=== PATIENT | female | born 1955 | race Caucasian/White ===

== ENCOUNTER 2019-04-25 06:34 | Inpatient (IN) ==
--- NOTE | 2019-03-30 13:35 | ANES ---
Anesthesia Pre Procedure Eval HOME MEDICATIONS amlodipine 2.5 mg tablet 2.5 mg PO DAILY 02/22/19 [Last Taken Unknown] aspirin 81 mg tablet,delayed release 81 mg PO DAILY 02/22/19 [Last Taken Unknown] cranberry zxzr-N-jtzskgim coag 450 mg-30 mg-50 million cell tablet 1 tab PO DAILY tab 02/22/19 [Last Taken Unknown] hydrochlorothiazide 12.5 mg capsule 12.5 mg PO DAILY 02/22/19 [Last Taken Unknown] levothyroxine 100 mcg capsule 100 mcg PO DAILY 02/22/19 [Last Taken Unknown] metoprolol succinate 50 mg tablet,extended release 24 hr 50 mg PO DAILY 02/22/19 [Last Taken Unknown] naproxen sodium 220 mg tablet 440 mg PO QAM PRN tab 02/22/19 [Last Taken Unknown] pravastatin 20 mg tablet 20 mg PO DAILY 02/22/19 [Last Taken Unknown] turmeric root extract 1,053 mg tablet 1,053 mg PO DAILY tab 02/22/19 [Last Taken Unknown] Allergies/Adverse Reactions: Allergies Allergy/AdvReac Type Severity Reaction Status Date / Time No Known Allergies Allergy Verified 03/30/19 08:58 - Planned Procedure Planned Procedure: Arthroplasty Left Total Knee 04/24, RTK on 04/26 Medication List Reviewed:: Yes Allergies Verified: Yes Medical History (Last Reviewed 03/30/19 @ 13:34 by Frankie Villalobos CRNA) Osteoarthritis of knee (Chronic) Arthritis Onset Date: Unknown CHD (congenital heart disease) Onset Date: Unknown ventricular septal defect Degenerative joint disease of knee Onset Date: Unknown bilateral Hypertension Onset Date: Unknown Pulmonary sarcoidosis Onset Date: Unknown Ventricular septal defect Onset Date: Unknown Surgical History (Last Reviewed 03/30/19 @ 13:34 by Frankie Villalobos CRNA) History of section Onset Date: 1988 History of hysterectomy Onset Date: 2004 Family History (Last Reviewed 03/30/19 @ 13:34 by Frankie Villalobos CRNA) Father , fall before he CHF (congestive heart failure) Hypertension Arthritis Mother Arthritis Hypertension Brain tumor - Family Anesthesia History Family History:: no untoward family reactions to anesthesia, no familial bleeding tendencies, no family history of clotting disorders, no family history of premature - Airway/Neck/Teeth Within Normal Limits:: Yes Teeth Condition: missing Mallampatti Score: 2 Thyromental (T-M) distance: > 6 cm Mandibulo Hyoid distance: > 3 cm - Respiratory Smoking Status: Never smoker Discussed smoking cessation including day of surgery: No Sleep Apnea currently treated: No Sleep Apnea by current assessment: No Discussed Risks/Treatment of TAMMY: No - Cardiovascular Tolerate Activity: Fair Heart Sounds: S1 & S2, Regular - Anesthesia Assessment and Plan ASA Class: PS, III Anesthesia Type Plan: Block - Ultrasound guided adductor canal nerve block for postop analgesia, Spinal
[~2019-04-25 06:34] MED LIST: ISOPROPYL ALCOHOL 480 APPL BTL MC ONE; MORPHINE SULFATE 15 MG TABLET.SA PO PRN; ROPIVACAINE HCL/PF 100 MG, EPINEPHrine 0.2 MG, KETOROLAC TROMETHAMINE 30 MG in NORMAL S... IJ PRN; TRANEXAMIC ACID 1,000 MG in NORMAL SALINE 100 ML IV PRN; ceFAZolin SODIUM 1 GM VIAL IV PRN; ceFAZolin SODIUM 1 GM VIAL ONE
[2019-04-25] MEDS ORDERED: MIDAZOLAM HCL/PF 5 MG/ML VIAL ONE (07:02)
[2019-04-25] MEDS ORDERED: PROPOFOL VIAL IV ONE (07:03)
[2019-04-25] MEDS ORDERED: LIDOCAINE HCL 20 ML VIAL ONE (07:04)
[2019-04-25] MEDS ORDERED: BUPIVACAINE HCL/EPINEPHRINE/PF 30 ML VIAL IJ ONE (07:20)
[2019-04-25] MEDS: RINGER'S SOLUTION,LACTATED 1,000 ML IV PRN ×3 (07:39→10:20)
--- NOTE | 2019-04-25 07:41 | ANES ---
Anesthesia Pre Procedure Eval Vitals/Labs: Last Vital Signs Temp 37.7 C 04/25/19 06:51 Pulse 70 04/25/19 06:51 Resp 18 04/25/19 06:51 BP 121/83 04/25/19 06:51 Pulse Ox 95 04/25/19 06:51 HOME MEDICATIONS amlodipine 2.5 mg tablet 2.5 mg PO DAILY 02/22/19 [Last Taken 04/25/19] aspirin 81 mg tablet,delayed release 81 mg PO DAILY 02/22/19 [Last Taken 04/15/19] cranberry mmdl-H-fwvcianu coag 450 mg-30 mg-50 million cell tablet 1 tab PO DAILY tab 02/22/19 [Last Taken 04/24/19] hydrochlorothiazide 12.5 mg capsule 12.5 mg PO DAILY 02/22/19 [Last Taken 04/25/19] levothyroxine 100 mcg capsule 100 mcg PO DAILY 02/22/19 [Last Taken 04/24/19] metoprolol succinate 50 mg tablet,extended release 24 hr 50 mg PO DAILY 02/22/19 [Last Taken 04/25/19] naproxen sodium 220 mg tablet 440 mg PO QAM PRN tab 02/22/19 [Last Taken 04/15/19] pravastatin 20 mg tablet 20 mg PO DAILY 02/22/19 [Last Taken 04/24/19] turmeric root extract 1,053 mg tablet 1,053 mg PO DAILY tab 02/22/19 [Last Taken 04/15/19] Allergies/Adverse Reactions: Allergies Allergy/AdvReac Type Severity Reaction Status Date / Time No Known Allergies Allergy Verified 03/30/19 08:58 - Planned Procedure Planned Procedure: Left Total Knee on 04/24, Right Total Knee on 04/26 Medication List Reviewed:: Yes Allergies Verified: Yes Medical History (Last Reviewed 04/25/19 @ 07:39 by Kalia Johnson CRNA) Osteoarthritis of knee (Chronic) High cholesterol Arthritis Onset Date: Unknown CHD (congenital heart disease) Onset Date: Unknown ventricular septal defect Degenerative joint disease of knee Onset Date: Unknown bilateral Hypertension Onset Date: Unknown Pulmonary sarcoidosis Onset Date: Unknown p/t reports seeing pulmonary doctor in 03/2019 and doctor stated both lungs showing stability at this time Ventricular septal defect Onset Date: Unknown Surgical History (Last Reviewed 04/25/19 @ 07:39 by Kalia Johnson CRNA) History of lung biopsy benign per p/t report History of section Onset Date: 1988 History of hysterectomy Onset Date: 2004 Family History (Last Reviewed 04/25/19 @ 07:39 by Kalia Johnson CRNA) Father , fall before he CHF (congestive heart failure) Arthritis Hypertension Mother Brain tumor Arthritis Hypertension Daughter Alive and well Daughter Alive and well - Family Anesthesia History Family History:: no untoward family reactions to anesthesia - Airway/Neck/Teeth Within Normal Limits:: Yes Teeth Condition: intact Denture Type: None Neck Exam: full range of motion Mallampatti Score: 2 Thyromental (T-M) distance: > 6 cm - Respiratory Respiratory History: asthma Respiratory Physical: lungs clear Discussed smoking cessation including day of surgery: No Sleep Apnea currently treated: No Sleep Apnea by current assessment: No Discussed Risks/Treatment of TAMMY: No - Cardiovascular Tolerate Activity: Fair Heart Sounds: S1 & S2, Regular - Anesthesia Assessment and Plan ASA Class: III Anesthesia Type Plan: MAC, Spinal Planned difficult intubation/equipment available: No
--- NOTE | 2019-04-25 10:06 | OR ---
Operative Report - Dictated Report Narrative: Date: 04/25/2019 Preoperative diagnosis: Left knee degenerative joint disease. Postoperative diagnosis: Left knee degenerative joint disease. Procedure: Left total knee arthroplasty. Surgeon: Alen England M.D. Nurse Orthopaedic: Shahram Lim PA-C (provided and essential set of skilled, educated hands that assisted with transfer, positioning, prepping, draping, manipulation, retraction, placement of jigs, injection, insertion of implants, irrigation, closure wounds, and dressings all of which could not be performed by the available surgical crew) Anesthesia: Spinal with regional block and local periarticular joint injection. Complications: None Specimens: Bone. Estimated blood loss: Minimal. Tourniquet time: 100 Minutes at 350 millimeters of mercury. Retained implants: Depuy Attune size 5 left lugged cemented posterior stabilized femoral component. Size 5 fixed-bearing cemented tibial platform. 5 by 8 millimeter posterior stabilized cross-linked tibial insert. 38 millimeter medialized patella button. Indications: Mrs. Lane is a 64-year-old female who has had longstanding bilateral knee pain and arthrosis. She is here today for her left knee. This patient was followed in my clinic for period of time with significant complaints of left knee pain consistent with arthritic changes. She had failed conservative measures including, but not limited to, activity modification, passage of time, medications, and other conservative measures. Patient wished to proceed with surgical treatment. The risks, benefits, and alternatives were discussed in clinic. The risks of , blood clots, bleeding, infection, nerve/tendon blood vessel/ injury, malposition of components, intraoperative fracture, postoperative limited range of motion, persistent pain, failure of components, and need for additional procedures. Patient wished to proceed consent was obtained after answering all questions. Procedure: After marking the correct extremity on the floor, the patient was taken to the operating room. A timeout was performed. IV antibiotics consis ting of Ancef were administered prior to the procedure. A regional followed by spinal anesthetic was induced by anesthesia, per my request, on the operative table with all bony prominences well-padded. Wood catheter was placed, and a bump was placed under the operative side buttock. SCDs and GERARD hose were utilized on the nonoperative leg. A well-padded tourniquet was applied to the operative thigh. The operative leg was then pre-scrubbed with alcohol, prepped, and draped in a standard sterile fashion. After exsanguinating the extremity with an Esmarch bandage, the tourniquet was inflated. After marking out the anterior knee for standard incision centered over the patella, the skin was incised and dissected down to the joint retinaculum. The joint retinaculum was marked out as well as the horizontal axis of the patella, and a standard medial parapatellar arthrotomy was then made. The most proximal aspect of the quadriceps tendon and the patella tendon insertion were protected from release. A partial synovectomy was performed as well as a resection of the infrapatellar fat pad. The distal femoral fat pad proximal to the trochlea was also resected using cautery. The soft tissues were elevated off the medial aspect of the proximal tibia using a Etienne elevator ensuring that we did not transect the medial collateral ligament. Upon initial evaluation range of motion was approximately 5 degrees recurvatum to 120 degrees of flexion. There were signs of advanced arthrosis in the medial, lateral, and patellofemoral joint spaces. There were large marginal osteophytes which were removed with a rongeur. The knee was hyperflexed and the patella was tucked laterally. Protecting the surrounding soft tissues with Homans, an entry drill was placed down the femoral canal using Whitesides line for guidance into the entry point. The intramedullary femoral alignment ojlanta was utilized in order to cut the distal femur in 5 degrees of valgus resecting 10 millimeters of bone. Next the distal femur was sized to a size 5. A posterior referencing guide was utilized to place the distal femoral cutting block in 3 degrees of external rotation. This was pinned into place. The rotation was confirmed both visually and based on anatomic landmarks. The 4 in 1 cutting jig of the appropriate size was utilized in order to make all bony cuts. The deon wing was used to ensure no notching. Retractors were utilized in order to protect surrounding soft tissues. This cut did not result in any excessive notching. We then cut the box centered over the distal femur. This allowed for resection of the anterior and posterior cruciate ligaments. I then turned my attention to the preparation of the tibia. Using an extra medullary tibial alignment jolanta, 2 millimeters of bone was resected off the medial articular surface. This was made perpendicular to the mechanical axis of the joint with the alignment jolanta centered over the ankle mortise. The alignment jolanta was checked and was noted to be parallel to the mechanical axis, centered over the medial one third of the tibial tubercle, paralleling the anterior surface of the tibia. We then turned our attention to the remaining meniscus and soft tissues. These were removed while protecting the surrounding ligaments and soft tissues. The marginal osteophytes off the anterior, posterior, medial, lateral aspects of the femur and tibia were removed. The tibia was sized out to a size 5. Next the tibia was drilled and punched in an externally rotated position. Next the trial femur and a series of tibial inserts were utilized in order to allow for full extension and maximal flexion. It was found that a 8 millimeter insert gave the best range of motion and stability at multiple flexion points as well as at full extension there was less than 2 mm of gapping both medially and laterally. There is minimal anterior translation with the knee at 90 degrees of flexion and no signs of being able to dislocate the knee. The patella was then prepared. The initial thickness was 23 millimeters. This was reamed down to 13 millimeters parallel to the anterior surface of the patella. It was sized out to a size 38 medialized patella button. This was then drilled and trialed. Without any medial restraint the patella tracked appropriately and did not sublux or dislocate. At this point, it was felt these were the appropriate sized implants, and all trials were removed. The standard periarticular joint injection consisting of ropivacaine, Toradol, and epinephrine were injected into the periarticular joint tissues. The bony surfaces were thoroughly irrigated with a pulsatile-suction saline irrigation device. A bone plug from the prior resected anterior chamfer cut was placed into the drill hole at the distal femur. The bony surfaces were then dried in preparation for placement of the implants. The cement was vacuum mixed per the federal aid coordinator's instructions. The cement was placed on the dry bony surfaces and posterior aspect of the implants. The implants were impacted into place, removing all extruded cement. At this point anesthesia administered tranexamic acid per protocol intravenously. The knee was placed in extension with axial loading with the trial insert while the cement cured. Once the cement cured, all remaining extruded cement was removed. The knee was placed through a range of motion with the trial insert to ensure appropriate range of motion and stability. Final range of motion was approximately 0 to 120 degrees. The knee was again thoroughly irrigated with pulsatile saline lavage. The final polyethylene insert was then impacted into place ensuring no retained soft tissues. The remaining periarticular joint injection was injected. A medium Hemovac drain was placed exiting superior laterally. The knee was then placed over a triangle and the arthrotomy was closed with interrupted #1 Vicryl after thoroughly irrigating the joint. The deep and subcutaneous tissues were closed with interrupted 0 and 3-0 Vicryl respectively. Skin was closed with a running subcutaneous 3-0 Monocryl and Prineo Dermabond dressing. 4 x 4's, Sof-Rol, and a full leg Juan R wrap were applied. All sponge, needle, blade, and instrument counts were correct prior to closing the wounds. Postoperative condition: The patient was awoken and transferred to the postanesthesia care unit in stable condition. Plan is to be admitted to the inpatient medical/surgical floor postoperatively for 24 hours of IV antibiotics, physical therapy, occupational therapy, and medical comanagement. Patient will be weightbearing as tolerated with range of motion as tolerated. DVT prophylaxis will be with SCDs, GERARD hose, and pharmacological anticoagulation. Anticipated hospital stay is approximately 1-3 days.
[2019-04-25] MEDS ORDERED: ACETAMINOPHEN 500 MG TABLET PO PRN (10:09)
[2019-04-25] MEDS ORDERED: MAGNESIUM HYDROXIDE 30 ML UDC PO PRN (10:09)
[2019-04-25] MEDS ORDERED: MORPHINE SULFATE 2 MG/ML DISP.SYRIN IV PRN (10:09)
[2019-04-25] MEDS ORDERED: MAG HYDROX/ALUMINUM HYD/SIMETH 30 ML UDC PO PRN (10:09)
[2019-04-25] MEDS ORDERED: diphenhydrAMINE HCL 50 MG/ML VIAL IV PRN (10:09)
[2019-04-25] MEDS ORDERED: ZOLPIDEM TARTRATE 5 MG TABLET PO PRN (10:09)
--- NOTE | 2019-04-25 10:11 | ANES ---
Anesthesia Procedure Note Procedure Note: ANESTHESIA PROCEDURE NOTE Date of Procedure: [04/25/2019 Time of procedure: 8 AM. Performed by: DARLIN Deng CRNA, MSN Gis Technician: Makeda Finch RN. Preprocedure diagnosis: Left total knee arthroplasty pain. Post procedure diagnosis: Same. Procedure: Left adductor Canal Block. Indications: Post left total knee arthroplasty pain relief. Findings: See below. Details of the procedure: The patient was brought to OR #4 and placed in supine position. The patient's left femoral area to the knee was prepped with chlorhexidine and using ultrasound guidance the left femoral artery and nerve was identified and then followed to the level of the adductor canal. Lidocaine 1% was infiltrated to the skin of the intended injection site. Under ultrasound guidance the saphenous nerve was approached with visualization of a 4 inch shielded block needle. Once saphenous nerve was identified with proximity to the needle tip, the saphenous nerve was surrounded with 20 mL bupivacaine 0.5% with 1-200,000 epinephrine. Please see radiology/ultrasound report for details and retained images of the procedure. EBL: 0 Fluids: N/A. Specimen: N/A. Post procedure condition: The patient tolerated the procedure well. No complications were noted. Thank you for this consultation. Porter Nam CRNA, ARNP, MSN
--- NOTE | 2019-04-25 10:32 | ANES ---
Post Anesthesia Assessment - Vital Signs Vitals: Last Vital Signs Temp 36.8 C 04/25/19 10:20 Pulse 65 04/25/19 10:25 Resp 13 04/25/19 10:25 BP 119/51 04/25/19 10:25 Pulse Ox 99 04/25/19 10:25 Airway Patency: Normal - Mental Status Level Of Consciousness: Awake, Alert - Pain Level Pain Score: 0 - N/V Assessment Nausea/Vomiting Presence: None Dehydration:: No
--- NOTE | 2019-04-25 10:53 | ANES ---
Post Anesthesia Discharge - Transfer of Care Transfer of Care handoff given to nurse: Yes - Discharge from PACU Discharge from PACU when meets criteria: Yes - Discharge to ASU Discharge to ASU-no complications/pt stable: Yes - Anesthesia Post Op Note Anesthesia Post Op Note: SAB beginning to resolve. Appears to be doing well.
[2019-04-25] MEDS: DEXTROSE 5%-LACTATED RINGERS 1,000 ML IV PRN ×2 (11:00→19:36)
[2019-04-25] MEDS: KETOROLAC TROMETHAMINE 15 MG/ML VIAL IV SCH ×3 (11:14→22:17)
[2019-04-25] MEDS: ceFAZolin SODIUM 1 GM in DEXTROSE 5 % IN WATER 50 ML IV SCH ×4 (11:15→17:28)
[2019-04-25] MEDS: oxyCODONE HCL/ACETAMINOPHEN 1 TAB TABLET PO PRN ×2 (12:42→17:26)
[2019-04-25] MEDS: SIMVASTATIN 10 MG TABLET PO SCH (20:48)
[2019-04-25] MEDS: SENNOSIDES/DOCUSATE SODIUM 1 TAB TABLET PO SCH (20:48)
[2019-04-25] MEDS: MORPHINE SULFATE 15 MG TABLET.SA PO SCH (20:51)
[2019-04-26] MEDS: ceFAZolin SODIUM 1 GM in DEXTROSE 5 % IN WATER 50 ML IV SCH ×2 (00:09)
[2019-04-26] MEDS: oxyCODONE HCL/ACETAMINOPHEN 1 TAB TABLET PO PRN ×4 (01:21→18:18)
[2019-04-26] MEDS: KETOROLAC TROMETHAMINE 15 MG/ML VIAL IV SCH ×4 (03:58→22:37)
[2019-04-26 06:29] LABS: Hematocrit 28.6 % (37.0-47.0); Hemoglobin 9.3 gm/dL (12.5-16.0); Mean Corpuscular Hemoglobin 28.6 pg (27-31); Mean Corpuscular Hgb Conc 32.5 g/dl (32-36); Mean Platelet Volume 9.7 fl (8-12.5); Platelet Count 138 K/mm3 (150-450); Red Blood Count 3.25 M/mm3 (4.2-5.4); Red Cell Distribution Width 14.3 % (11.5-14.0); White Blood Count 2.2 K/mm3 (4.0-10.5)
[2019-04-26 06:39] LABS: Anion Gap 9.8 mmol/L (6.8-13.8); BUN/Creatinine Ratio 10.5 (9.0-21.6); Calcium * 7.6 mg/dL (7.9-10.9); Carbon Dioxide 28.5 mmol/L (24-32.6); Potassium 3.3 mmol/L (3.4-4.6)
[2019-04-26] MEDS: LEVOTHYROXINE SODIUM 100 MCG TABLET PO SCH (06:44)
--- NOTE | 2019-04-26 07:56 | PN ---
Subjective - Date and Time Seen Date: 04/26/19 Time: 07:51 Subjective Narrative: Subjective: Reports minimal pain. Was able to walk in the room with therapy. Pain is well-controlled. Voiding without any complications. Tolerating by mouth intake. Denies any nausea or vomiting. Denies calf pain. Slept well. Physical exam: Alert and oriented to person, place and time Left lower extremity: Palpable dorsalis pedis pulse. Sensation grossly intact to light touch. Dressings clean and dry. Able to flex and extend ankle and toes. No excessive drainage. Calf and thigh are soft and nontender. Assessment: Postop day 1 status post left total knee arthroplasty. Plan: Due to the need for pain control, post-operative limited mobility, protection of the surgical site and joint, monitoring of the wound, and the management of chronic medical conditions, she requires continued inpatient care. Plan is to proceed with her right total knee arthroplasty tomorrow. Continue with physical and occupational therapy weightbearing as tolerated. Continue with anticoag ulation. 24 hours postoperative prophylactic antibiotics. Pain control with goal to rely on oral medications. Continue bowel regimen. Will need 6 weeks with walker or assitive device to protect joint while ambulating during the recovery process. Discharge planning. Discontinue drain and continue Wood catheter due to planned surgical procedure tomorrow. Objective - Vitals Vitals: Last Vital Signs Temp 37.0 C 04/26/19 06:30 Pulse 64 04/26/19 06:30 Resp 18 04/26/19 06:30 BP 142/70 04/26/19 06:30 Pulse Ox 99 04/26/19 06:30 - Abnormal Lab Findings Abnormal Lab Findings: Abnormal Lab Results 04/26/19 04/26/19 Range/Units 06:23 06:23 WBC 2.2 L (4.0-10.5) K/mm3 RBC 3.25 L (4.2-5.4) M/mm3 Hgb 9.3 L (12.5-16.0) gm/dL Hct 28.6 L (37.0-47.0) % RDW 14.3 H (11.5-14.0) % Plt Count 138 L (150-450) K/mm3 Potassium 3.3 L (3.4-4.6) mmol/L Calcium 7.6 L (7.9-10.9) mg/dL Cauti Physician Documentation - Urinary Catheter Management Urethral (Wood) Urethral Indwelling: Yes Reason for Continuing Indwelling Catheter: Surgical Procedure Date of Insertion: 04/25/19 Time of Insertion: 08:10 Assessment/Plan - Problems/Diagnosis (1) Status post total left knee replacement Problem: Acute (2) HTN (hypertension) Problem: Chronic (3) Hyperlipemia Problem: Chronic (4) Asthma Problem: Chronic (5) Ventricular septal defect (VSD), membranous Problem: Chronic (6) Mitral regurgitation Problem: Chronic (7) Pulmonary sarcoidosis Problem: Chronic (8) Tricuspid regurgitation Problem: Chronic (9) Granulomatous disease Problem: Chronic (10) Acute blood loss anemia Problem: Acute
[2019-04-26] MEDS: [UNRECOGNIZED DRUG - MIXTURE] PO SCH (08:43)
[2019-04-26] MEDS: TURMERIC ROOT EXTRACT 1053 MG PO SCH (08:43)
[2019-04-26] MEDS: amLODIPine BESYLATE 5 MG TABLET PO SCH (08:44)
[2019-04-26] MEDS: ENOXAPARIN SODIUM 40 MG/0.4 ML SYRG SC SCH (08:44)
[2019-04-26] MEDS: METOPROLOL SUCCINATE 50 MG TABLET.SA PO SCH (08:44)
[2019-04-26] MEDS: HYDROCHLOROTHIAZIDE 12.5 MG CAPSULE PO SCH (08:44)
[2019-04-26] MEDS: MORPHINE SULFATE 15 MG TABLET.SA PO SCH ×2 (08:44→20:45)
[2019-04-26] MEDS: ONDANSETRON HCL/PF 2 MG/ML VIAL IV PRN ×2 (10:33→18:20)
[2019-04-26] MEDS: SENNOSIDES/DOCUSATE SODIUM 1 TAB TABLET PO SCH (20:45)
[2019-04-26] MEDS: SIMVASTATIN 10 MG TABLET PO SCH (20:46)
[2019-04-27] MEDS: KETOROLAC TROMETHAMINE 15 MG/ML VIAL IV SCH ×4 (03:34→23:50)
[2019-04-27] MEDS: oxyCODONE HCL/ACETAMINOPHEN 1 TAB TABLET PO PRN ×3 (03:35→17:47)
[2019-04-27] MEDS: ONDANSETRON HCL/PF 2 MG/ML VIAL IV PRN ×3 (03:37→17:47)
[2019-04-27] MEDS ORDERED: TRANEXAMIC ACID 1,000 MG in NORMAL SALINE 100 ML IV PRN (06:00)
[2019-04-27] MEDS ORDERED: ROPIVACAINE HCL/PF 100 MG, EPINEPHrine 0.2 MG, KETOROLAC TROMETHAMINE 30 MG in NORMAL S... IJ PRN (06:00)
[2019-04-27] MEDS ORDERED: ceFAZolin SODIUM 1 GM VIAL IV PRN (06:00)
[2019-04-27] MEDS ORDERED: BUPIVACAINE HCL/EPINEPHRINE/PF 30 ML VIAL IJ ONE (06:34)
[2019-04-27] MEDS ORDERED: PROPOFOL VIAL IV ONE (06:34)
[2019-04-27] MEDS ORDERED: MIDAZOLAM HCL/PF 1 MG/ML VIAL ONE (06:34)
[2019-04-27] MEDS ORDERED: ISOPROPYL ALCOHOL 480 APPL BTL MC ONE (07:08)
[2019-04-27] MEDS ORDERED: ceFAZolin SODIUM 1 GM VIAL ONE (07:08)
[2019-04-27] MEDS: RINGER'S SOLUTION,LACTATED 1,000 ML IV ONE ×2 (07:20→09:40)
[2019-04-27] MEDS: METOPROLOL SUCCINATE 50 MG TABLET.SA PO SCH ×2 (07:28→09:41)
[2019-04-27] MEDS: MORPHINE SULFATE 15 MG TABLET.SA PO SCH ×3 (07:29→20:29)
[2019-04-27] MEDS: amLODIPine BESYLATE 5 MG TABLET PO SCH (09:40)
[2019-04-27] MEDS: LEVOTHYROXINE SODIUM 100 MCG TABLET PO SCH (09:40)
[2019-04-27] MEDS: [UNRECOGNIZED DRUG - MIXTURE] PO SCH (09:40)
[2019-04-27] MEDS: HYDROCHLOROTHIAZIDE 12.5 MG CAPSULE PO SCH (09:40)
[2019-04-27] MEDS: TURMERIC ROOT EXTRACT 1053 MG PO SCH (09:41)
[2019-04-27] MEDS: ENOXAPARIN SODIUM 40 MG/0.4 ML SYRG SC SCH (09:42)
[2019-04-27] MEDS ORDERED: DEXTROSE 5%-LACTATED RINGERS 1,000 ML IV PRN (10:15)
--- NOTE | 2019-04-27 10:20 | OR ---
Operative Report - Dictated Report Narrative: Date: 04/27/2019 Preoperative diagnosis: Right knee degenerative joint disease. Postoperative diagnosis: Right knee degenerative joint disease. Procedure: Right total knee arthroplasty. Surgeon: Alen England M.D. Preschool Associate Teacher: Austin Tang PA-C (provided and essential set of skilled, educated hands that assisted with transfer, positioning, prepping, draping, manipulation, retraction, placement of jigs, injection, insertion of implants, irrigation, closure wounds, and dressings all of which could not be performed by the available surgical crew) Anesthesia: Spinal with regional block and local periarticular joint injection. Complications: None Specimens: Bone. Estimated blood loss: Minimal. Tourniquet time: 120 Minutes at 350 millimeters of mercury. Retained implants: Depuy Attune size 5 right lugged cemented posterior stabilized femoral component. Size 5 revision fixed-bearing cemented tibial platform. 5 by 6 millimeter posterior stabilized cross-linked tibial insert. 38 millimeter medialized patella button. Indications: Mrs. Lane is a 64-year-old female who is here today for her second of 2 staged total knee arthroplasties. Today is her right. This patient was followed in my clinic for period of time with significant complaints of rig ht knee pain consistent with arthritic changes. She had failed conservative measures including, but not limited to, activity modification, passage of time, medications, and other conservative measures. Patient wished to proceed with surgical treatment. The risks, benefits, and alternatives were discussed in clinic. The risks of , blood clots, bleeding, infection, nerve/tendon blood vessel/ injury, malposition of components, intraoperative fracture, postoperative limited range of motion, persistent pain, failure of components, and need for additional procedures. Patient wished to proceed consent was obtained after answering all questions. Procedure: After marking the correct extremity on the floor, the patient was taken to the operating room. A timeout was performed. IV antibiotics consisting of Ancef were administered prior to the procedure. A regional followed by spinal anesthetic was induced by anesthesia, per my request, on the operative table with all bony prominences well-padded. Wood catheter was already in place, and a bump was placed under the operative side buttock. SCDs and GERARD hose were utilized on the nonoperative leg. A well-padded tourniquet was applied to the operative thigh. The operative leg was then pre-scrubbed with alcohol, prepped, and draped in a standard sterile fashion. After exsanguinating the extremity with an Esmarch bandage, the tourniquet was inflated. After marking out the anterior knee for standard incision centered over the patella, the skin was incised and dissected down to the joint retinaculum. The joint retinaculum was marked out as well as the horizontal axis of the patella, and a standard medial parapatellar arthrotomy was then made. The most proximal aspect of the quadriceps tendon and the patella tendon insertion were protected from release. A partial synovectomy was performed as well as a resection of the infrapatellar fat pad. The distal femoral fat pad proximal to the trochlea was also resected using cautery. The soft tissues were elevated off the medial aspect of the proximal tibia using a Etienne elevator ensuring that we did not transect the medial collateral ligament. Upon initial evaluation range of motion was approximately 0 degrees to 120 degrees of flexion. There were signs of advanced arthrosis in the medial, lateral, and patellofemoral joint spaces. There were large marginal osteophytes which were removed with a rongeur. The knee was hyperflexed and the patella was tucked laterally. Protecting the surrounding soft tissues with Homans, an entry drill was placed down the femoral canal using Whitesides line for guidance into the entry point. The intramedullary femoral alignment jolanta was utilized in order to cut the distal femur in 5 degrees of valgus resecting 10 millimeters of bone. Next the distal femur was sized to a size 5. A posterior referencing guide was utilized to place the distal femoral cutting block in 3 degrees of external rotation. This was pinned into place. The rotation was confirmed both visually and based on anatomic landmarks. The 4 in 1 cutting jig of the appropriate size was utilized in order to make all bony cuts. The deon wing was used to ensure no notching. Retractors were utilized in order to protect surrounding soft tissues. This cut did not result in any excessive notching. We then cut the box centered over the distal femur. This allowed for resection of the anterior and posterior cruciate ligaments. I then turned my attention to the preparation of the tibia. Using an extra medullary tibial alignment jolanta, 2 millimeters of bone was resected off the medial articular surface. This was made perpendicular to the mechanical axis of the joint with the alignment jolanta centered over the ankle mortise. The alignment jolanta was checked and was noted to be parallel to the mechanical axis, centered over the medial one third of the tibial tubercle, paralleling the anterior surface of the tibia. We then turned our attention to the remaining meniscus and soft tissues. These were removed while protecting the surrounding ligaments and soft tissues. The marginal osteophytes off the anterior, posterior, medial, lateral aspects of the femur and tibia were removed. The tibia was sized out to a size 5. Next the tibia was drilled and punched in an externally rotated position. Next the trial femur and a series of tibial inserts were utilized in order to allow for full extension and maximal flexion. It was found that a 6 millimeter insert gave the best range of motion and stability at multiple flexion points as well as at full extension there was less than 2 mm of gapping both medially and laterally. There is minimal anterior translation with the knee at 90 degrees of flexion and no signs of being able to dislocate the knee. The patella was then prepared. The initial thickness was 23 millimeters. This was reamed down to 13 millimeters parallel to the anterior surface of the patella. It was sized out to a size 38 medialized patella button. This was then drilled and trialed. Without any medial restraint the patella tracked appropriately and did not sublux or dislocate. At this point, it was felt these were the appropriate sized implants, and all trials were removed. The standard periarticular joint injection consisting of ropivacaine, Toradol, and epinephrine were injected into the periarticular joint tissues. The bony surfaces were thoroughly irrigated with a pulsatile-suction saline irrigation device. A bone plug from the prior resected anterior chamfer cut was placed into the drill hole at the distal femur. The bony surfaces were then dried in preparation for placement of the implants. The cement was vacuum mixed per the advanced practice professional's instructions. The cement was placed on the dry bony surfaces and posterior aspect of the implants. The implants were impacted into place, removing all extruded cement. At this point anesthesia administered tranexamic acid per protocol intravenously. The knee was placed in extension with axial loading with the trial insert while the cement cured. Once the cement cured, all remaining extruded cement was removed. The knee was placed through a range of motion with the trial insert to ensure appropriate range of motion and stability. Final range of motion was approximately 0 to 120 degrees. The knee was again thoroughly irrigated with pulsatile saline lavage. The final polyethylene insert was then impacted into place ensuring no retained soft tissues. The remaining periarticular joint injection was injected. A medium Hemovac drain was placed exiting superior laterally. The knee was then placed over a triangle and the arthrotomy was closed with interrupted #1 Vicryl after thoroughly irrigating the joint. The deep and subcutaneous tissues were closed with interrupted 0 and 3-0 Vicryl respectively. Skin was closed with a running subcutaneous 3-0 Monocryl and Prineo Dermabond dressing. 4 x 4's, Sof-Rol, and a full leg Juan R wrap were applied. All sponge, needle, blade, and instrument counts were correct prior to closing the wounds. Postoperative condition: The patient was awoken and transferred to the postanesthesia care unit in stable condition. Plan is to be admitted to the inpatient medical/surgical floor postoperatively for 24 hours of IV antibiotics, physical therapy, occupational therapy, and medical comanagement. Patient will be weightbearing as tolerated with range of motion as tolerated. DVT prophylaxis will be with SCDs, GERARD hose, and pharmacological anticoagulation. Anticipated hospital stay is approximately 1-3 days.
--- NOTE | 2019-04-27 10:38 | ANES ---
Post Anesthesia Discharge - Transfer of Care Transfer of Care handoff given to nurse: Yes - Discharge from PACU Discharge from PACU when meets criteria: Yes - Comfortable in PACU.
--- NOTE | 2019-04-27 10:40 | ANES ---
Anesthesia Procedure Note Procedure Note: ANESTHESIA PROCEDURE NOTE Date of Procedure: [04/27/2019 Time of procedure: 7:50 AM Performed by: DARLIN Deng CRNA, MSN Licensed Nursing Assistant: Batsheva Joinre RN. Preprocedure diagnosis: Post right knee arthroplasty pain. Post procedure diagnosis: Same. Procedure: Right adductor Canal Block. Indications: Post right total knee arthroplasty pain relief. Findings: See below. Details of the procedure: The patient was brought to OR #4 and placed in supine position. The patient's right femoral area to the knee was prepped with chlorhexidine and using ultrasound guidance the right femoral artery and nerve was identified and then followed to the level of the adductor canal. Lidocaine 1% was infiltrated to the skin of the intended injection site. Under ultrasound guidance the saphenous nerve was approached with visualization of a 4 inch shielded block needle. Once saphenous nerve was identified with proximity to the needle tip, the saphenous nerve was surrounded with 25 mL bupivacaine 0.5% with 1-200,000 epinephrine. Please see radiology/ultrasound report for details and retained images of the procedure. EBL: 0 Fluids: N/A. Specimen: N/A. Post procedure condition: The patient tolerated the procedure well. No complications were noted. Thank you for this consultation. Porter Nam CRNA, ARNP, MSN
[2019-04-27] MEDS ORDERED: EPINEPHrine 1 MG/ML AMPUL ONE (10:41)
--- NOTE | 2019-04-27 11:29 | ANES ---
Post Anesthesia Assessment - Vital Signs Vitals: Last Vital Signs Temp 36.6 C 04/27/19 11:09 Pulse 59 L 04/27/19 11:09 Resp 12 04/27/19 11:09 BP 154/76 H 04/27/19 11:09 Pulse Ox 94 04/27/19 11:09 Airway Patency: Normal - Mental Status Level Of Consciousness: Awake, Alert, Appropriate - Pain Level Pain Score: 0 - N/V Assessment Nausea/Vomiting Presence: None Dehydration:: No
[2019-04-27] MEDS: CEFAZOLIN SODIUM/DEXTROSE,ISO 1 GM/50 ML BAG IV SCH ×2 (12:07→20:31)
[2019-04-27] MEDS ORDERED: ceFAZolin SODIUM 1 GM in DEXTROSE 5 % IN WATER 50 ML IV SCH ×2 (12:15)
[2019-04-27] MEDS: SENNOSIDES/DOCUSATE SODIUM 1 TAB TABLET PO SCH (20:29)
[2019-04-27] MEDS: SIMVASTATIN 10 MG TABLET PO SCH (20:30)
[2019-04-28] MEDS: KETOROLAC TROMETHAMINE 15 MG/ML VIAL IV SCH ×3 (04:42→17:16)
[2019-04-28] MEDS: CEFAZOLIN SODIUM/DEXTROSE,ISO 1 GM/50 ML BAG IV SCH (04:44)
[2019-04-28] MEDS: oxyCODONE HCL/ACETAMINOPHEN 1 TAB TABLET PO PRN ×3 (04:53→18:42)
[2019-04-28 06:48] LABS: Hemoglobin 8.8 gm/dL (12.5-16.0); Mean Cell Volume 87.4 fl (78-100); Mean Corpuscular Hemoglobin 28.5 pg (27-31); Mean Corpuscular Hgb Conc 32.6 g/dl (32-36); Mean Platelet Volume 10.4 fl (8-12.5); Platelet Count 173 K/mm3 (150-450); Red Blood Count 3.09 M/mm3 (4.2-5.4); Red Cell Distribution Width 14.4 % (11.5-14.0); White Blood Count 3.6 K/mm3 (4.0-10.5)
[2019-04-28] MEDS: LEVOTHYROXINE SODIUM 100 MCG TABLET PO SCH (06:53)
[2019-04-28 06:57] LABS: Anion Gap 11.1 mmol/L (6.8-13.8); BUN/Creatinine Ratio 11.7 (9.0-21.6); Calcium * 7.4 mg/dL (7.9-10.9); Carbon Dioxide 29.1 mmol/L (24-32.6); Estimated Creat Clear 69.1; Potassium 3.2 mmol/L (3.4-4.6)
[2019-04-28] MEDS: ONDANSETRON HCL/PF 2 MG/ML VIAL IV PRN (07:40)
[2019-04-28] MEDS: MORPHINE SULFATE 15 MG TABLET.SA PO SCH ×2 (09:52→20:26)
[2019-04-28] MEDS: METOPROLOL SUCCINATE 50 MG TABLET.SA PO SCH (09:53)
[2019-04-28] MEDS: HYDROCHLOROTHIAZIDE 12.5 MG CAPSULE PO SCH (09:53)
[2019-04-28] MEDS: amLODIPine BESYLATE 5 MG TABLET PO SCH (09:56)
[2019-04-28] MEDS: ENOXAPARIN SODIUM 40 MG/0.4 ML SYRG SC SCH (09:57)
[2019-04-28] MEDS: [UNRECOGNIZED DRUG - MIXTURE] PO SCH (10:15)
[2019-04-28] MEDS: TURMERIC ROOT EXTRACT 1053 MG PO SCH (10:17)
[2019-04-28] MEDS: POTASSIUM CHLORIDE 10 MEQ TABLET.SA PO SCH (18:37)
[2019-04-28] MEDS: SENNOSIDES/DOCUSATE SODIUM 1 TAB TABLET PO SCH (20:26)
[2019-04-28] MEDS: SIMVASTATIN 10 MG TABLET PO SCH (20:26)
--- NOTE | 2019-04-28 22:25 | PN ---
Subjective - Date and Time Seen Date: 04/28/19 Time: 07:45 Subjective Narrative: Subjective: Reports minimal pain. nausea this morning. Was able to get to the chair with therapy. Pain is well-controlled. Voiding without any complications. Tolerating by mouth intake. Denies calf pain. Slept well. Physical exam: Alert and oriented to person, place and time bilateral lower extremity: Palpable dorsalis pedis pulse. Sensation grossly intact to light touch. Dressings clean and dry. Able to flex and extend ankle and toes. No excessive drainage. Calf and thigh are soft and nontender. Assessment: Postop day 1 status post right total knee arthroplasty, POD 3 s/p left total knee Plan: Due to the need for pain control, post-operative limited mobility, protection of the surgical site and joint, monitoring of the wound, and the management of chronic medical conditions, she requires continued inpatient care. Plan is to proceed with her right total knee arthroplasty tomorrow. Continue with physical and occupational therapy weightbearing as tolerated. Continue with anticoagulation. 24 hours postoperative prophylactic antibiotics. Pain control with goal to rely on oral medications. Continue bowel regimen. Will need 6 weeks with walker or assitive device to protect joint while ambulating during the recovery process. Discharge planning. Discontinue drain and Wood catheter. monitor nausea Objective - Vitals Vitals: Last Vital Signs Temp 36.8 C 04/28/19 19:15 Pulse 62 04/28/19 19:15 Resp 20 04/28/19 19:15 BP 138/72 04/28/19 19:15 Pulse Ox 98 04/28/19 19:15 - Abnormal Lab Findings Abnormal Lab Findings: Abnormal Lab Results 04/28/19 04/28/19 Range/Units 06:20 06:20 WBC 3.6 L D (4.0-10.5) K/mm3 RBC 3.09 L (4.2-5.4) M/mm3 Hgb 8.8 L (12.5-16.0) gm/dL Hct 27.0 L (37.0-47.0) % RDW 14.4 H (11.5-14.0) % Potassium 3.2 L (3.4-4.6) mmol/L Random Glucose 138 H (70-110) mg/dL Calcium 7.4 L (7.9-10.9) mg/dL Cauti Physician Documentation - Urinary Catheter Management Urethral (Wood) Urethral Indwelling: Yes Date of Insertion: 04/25/19 Time of Insertion: 08:10 Date of Removal: 04/28/19 Time of Removal: 06:47 Assessment/Plan - Problems/Diagnosis (1) Status post total left knee replacement Problem: Acute (2) HTN (hypertension) Problem: Chronic (3) Hyperlipemia Problem: Chronic (4) Asthma Problem: Chronic (5) Ventricular septal defect (VSD), membranous Problem: Chronic (6) Mitral regurgitation Problem: Chronic (7) Pulmonary sarcoidosis Problem: Chronic (8) Tricuspid regurgitation Problem: Chronic (9) Granulomatous disease Problem: Chronic (10) Acute blood loss anemia Problem: Acute
[2019-04-29] MEDS: KETOROLAC TROMETHAMINE 15 MG/ML VIAL IV SCH ×2 (00:19→05:18)
[2019-04-29] MEDS: oxyCODONE HCL/ACETAMINOPHEN 1 TAB TABLET PO PRN ×3 (05:18→14:43)
[2019-04-29] MEDS: ONDANSETRON HCL/PF 2 MG/ML VIAL IV PRN ×2 (05:19→10:29)
[2019-04-29] MEDS: LEVOTHYROXINE SODIUM 100 MCG TABLET PO SCH (06:51)
[2019-04-29] MEDS: amLODIPine BESYLATE 5 MG TABLET PO SCH (08:13)
[2019-04-29] MEDS: METOPROLOL SUCCINATE 50 MG TABLET.SA PO SCH (08:13)
[2019-04-29] MEDS: MORPHINE SULFATE 15 MG TABLET.SA PO SCH (08:13)
[2019-04-29] MEDS: [UNRECOGNIZED DRUG - MIXTURE] PO SCH (08:13)
[2019-04-29] MEDS: HYDROCHLOROTHIAZIDE 12.5 MG CAPSULE PO SCH (08:13)
[2019-04-29] MEDS: POTASSIUM CHLORIDE 10 MEQ TABLET.SA PO SCH (08:14)
[2019-04-29] MEDS: TURMERIC ROOT EXTRACT 1053 MG PO SCH (08:14)
[2019-04-29] MEDS: ENOXAPARIN SODIUM 40 MG/0.4 ML SYRG SC SCH (08:14)
--- NOTE | 2019-04-29 13:45 | DS ---
(1) Status post total left knee replacement Problem: Acute (2) HTN (hypertension) Problem: Chronic (3) Hyperlipemia Problem: Chronic (4) Asthma Problem: Chronic (5) Ventricular septal defect (VSD), membranous Problem: Chronic (6) Mitral regurgitation Problem: Chronic (7) Pulmonary sarcoidosis Problem: Chronic (8) Tricuspid regurgitation Problem: Chronic (9) Granulomatous disease Problem: Chronic (10) Acute blood loss anemia Problem: Acute (11) Status post total right knee replacement Problem: Acute Date of Discharge:: 04/29/19 Hospital Course: Mrs. Lane was admitted to the floor after undergoing staged bilateral total knee arthroplasty. Tolerated this well. Was admitted to the floor postoperatively for 24 hours of IV antibiotics, pain control, medical comanagement, and occupational and physical therapy. OT and PT were consulted to assist with activities of daily living and ambulation. Was made weightbearing as tolerated with range of motion as tolerated. Pain was initially controlled with IV regimen. This was transitioned to oral once tolerating a by mouth intake. Was resumed on home diet and medications. Had a Wood catheter inserted and the operating room which was discontinued on postoperative day 1 after her second knee. A drain was placed intraoperatively into each knee which was discontinued on postoperative days 1. Lovenox SCD and GERARD hose were utilized for DVT prophylaxis. Vital signs remained stable to the hospital course. Labs were obtained which showed a final hemoglobin of 8.8 grams. Pre-op hemoglobin was 12.9 grams. She was asymptomatic clinically and thus we will monitor this clinically. BMP was reviewed and was stable. Physical examination throughout the hospital course showed an extremity that had sensation that was intact to light touch, palpable pulses, a benign wound, motor intact to the toes, ankle, and knee. Knee range of motion was approximately 0 degrees to 60 degrees. Once an oral pain regimen was tolerated and physical therapy goals were met, it was felt that they were stable for discharge to home. Instructions: Continue with weightbearing as tolerated and range of motion as tolerated. It is okay to shower and get the wound wet as long as there is no drainage from the wound. Do not bathe or soak the wound. If there is any drainage from the wound keep the wound clean and dry and cover with dry gauze and tape. Change every 2- 3 days as needed if there is any drainage. Cover wound while showering if there is any drainage. Continue with physical therapy. Resume home diet. Report any fever over 101.5 Fahrenheit, uncontrolled pain, increased drainage, foul odor of drainage, new or increased calf pain or shortness of breath, or any other significant complaints. A 325mg daily aspirin will be started after finishing anticoagulation if not allergic. Continue with GERARD hose on the operative extremity until instructed otherwise. No driving until instructed otherwise. Follow up in approximately 2-3 weeks. Procedures Performed: see notes below List Procedures: Bilateral total knee arthroplasties Results and Findings: Lab Pending Results 04/26/19 06:23: WBC 2.2 L, RBC 3.25 L, Hgb 9.3 L, Hct 28.6 L, MCV 88.0, MCH 28.6, MCHC 32.5, RDW 14.3 H, Plt Count 138 L, MPV 9.7 04/26/19 06:23: Sodium 138, Plasma Sodium 138, Potassium 3.3 L, Chloride 103, Carbon Dioxide 28.5, Anion Gap 9.8, BUN 8 D, Creatinine 0.76, Est GFR (Non-Af Amer) 82, BUN/Creatinine Ratio 10.5, Random Glucose 110, Calcium 7.6 L 04/28/19 06:20: WBC 3.6 L D, RBC 3.09 L, Hgb 8.8 L, Hct 27.0 L, MCV 87.4, MCH 28.5, MCHC 32.6, RDW 14.4 H, Plt Count 173, MPV 10.4 04/28/19 06:20: Sodium 141, Plasma Sodium 142, Potassium 3.2 L, Chloride 104, Carbon Dioxide 29.1, Anion Gap 11.1, BUN 9, Creatinine 0.77, Est GFR (Non-Af Amer) 81, BUN/Creatinine Ratio 11.7, Random Glucose 138 H, Calcium 7.4 L Discharge Location: Home Disposition: Home self-care Condition: Good Discharge Activity: Activity as tolerated, Weight bearing Discharge Diet: General/regular food Referrals: Jamir Schofield DO [Primary Care Provider] - Alen England MD [Staff Physician] - 05/17/19 9:00 am Problem Oriented Discharge Instructions to Patient/Family: Total Knee Replacement, Care After, [id number] Additional Patient Instructions (free text): Physical Therapy at [facility] scheduled for Thursday05-03-19 at 9:15am. Post-op Follow up appointment scheduled in the office with Dr. England on 05-17-19 at 9:00am. Prescriptions (Any new or edited meds): Enoxaparin Sodium [Lovenox] 40 mg SC Q24H #7 disp.syrin Transmission Status: Pending to [facility] - [place], [place] Morphine Sulfate [Ms Contin] 15 mg PO Q12H #10 tablet.sa Transmission Status: Sent to [facility] - [place], [place] oxyCODONE HCL/ACETAMINOPHEN [Percocet 5 MG/325 MG] 2 tab PO Q4H PRN #60 tab PRN Reason: Moderate Pain (Pain Scale 4-6) Transmission Status: Sent to [facility] - [place], [place] Sennosides/Docusate Sodium [Senokot-S] 2 tab PO HS #60 tab Transmission Status: Pending to [facility] - [place], [place] Ondansetron HCl [Zofran] 4 mg PO Q8H PRN #30 tab PRN Reason: Nausea Transmission Status: Pending to [facility] - [place], [place] Complete Home Medications List: Complete Home Medication List: amlodipine 2.5 mg tablet 2.5 mg PO DAILY 02/22/19 aspirin 81 mg tablet,delayed release 81 mg PO DAILY 02/22/19 cranberry [id number] coag 450 mg-30 mg-50 million cell tablet 1 tab PO DAILY tab 02/22/19 hydrochlorothiazide 12.5 mg capsule 12.5 mg PO DAILY 02/22/19 levothyroxine 100 mcg capsule 100 mcg PO DAILY 02/22/19 metoprolol succinate 50 mg tablet,extended release 24 hr 50 mg PO DAILY 02/22/19 naproxen sodium 220 mg tablet 440 mg PO QAM PRN tab 02/22/19 pravastatin 20 mg tablet 20 mg PO DAILY 02/22/19 turmeric root extract 1,053 mg tablet 1,053 mg PO DAILY tab 02/22/19 Enoxaparin Sodium [Lovenox] 40 mg SC Q24H #7 disp.syrin 04/29/19 Morphine Sulfate [Ms Contin] 15 mg PO Q12H #10 tablet.sa 04/29/19 Ondansetron HCl [Zofran] 4 mg PO Q8H PRN #30 tab 04/29/19 Sennosides/Docusate Sodium [Senokot-S] 2 tab PO HS #60 tab 04/29/19 oxyCODONE HCL/ACETAMINOPHEN [Percocet 5 MG/325 MG] 2 tab PO Q4H PRN #60 tab 04/29/19 Amb Orders for Discharge: PT Evaluation and Treatment* Facility: [facility], Location: Rehabilitation Services
[2019-04-29 14:20] VITALS: BP 146/69
== END 2019-04-29 15:19 | disposition home or self-care (01) | DRG 462 ==
LOC: MS 06:34 → EDSTATUS 08:00
PROVIDERS: ADMIT Orthopaedic Surgery; ATTEND Orthopaedic Surgery
DX: M17.0 Bilateral primary osteoarthritis of knee; Z68.41 Body mass index [BMI] 40.0-44.9, adult; E78.5 Hyperlipidemia, unspecified; Q21.0 Ventricular septal defect; I10 Essential (primary) hypertension; D62 Acute posthemorrhagic anemia; D86.0 Sarcoidosis of lung; I07.1 Rheumatic tricuspid insufficiency; E66.01 Morbid (severe) obesity due to excess calories; I34.0 Nonrheumatic mitral (valve) insufficiency; J45.909 Unspecified asthma, uncomplicated
CPT/HCPCS: 36415; 73560; 80048; 85027; 97110; 97116; 97161; 97164; 97165; 97530; 97535; J2405